=== PATIENT | male | born 1980 | race Caucasian/White ===

== ENCOUNTER 2019-09-03 10:53 | Outpatient (CLI) | payer BC ==
--- NOTE | 2019-09-03 11:41 | BD ---
DEXA BONE DENSITOMETRY: (Dual energy x-ray absorptiometry) DATE: 09/03/2019 HISTORY: 39-year old white male with celiac disease (resulting in malabsorption of calcium and vitamin D) for osteoporosis screening. weight: 240 lbs height: 74 in. COMPARISON: None available. FINDINGS: The bone mineral density (BMD) is given in grams per square centimeter (g/cm2): LUMBAR SPINE: BMD (g/cm^2) T score Z score L1: 0.896 -1.6 -1.6 L2: 1.018 -0.7 -0.7 L3: 1.054 -0.4 -0.4 L4: 1.009 -0.7 -0.7 Total: 0.997 -0.9 -0.7 HIP: BMD (g/cm^2) T score Z score Femoral neck: 0.776 -1.1 -0.7 Total: 0.886 -1.0 -0.8 IMPRESSION: 1.) The mean bone mineral density of the lumbar spine is normal. Fracture risk is not increased. 2) The bone mineral density of the femoral neck is osteopenic. Fracture risk is increased.
== END 2019-09-03 10:54 | disposition home or self-care (01) ==
LOC: BICMAMMO 10:53
PROVIDERS: ATTEND Internal Medicine Gastroenterology
DX: Z13.820 Encounter for screening for osteoporosis (principal); K90.0 Celiac disease; K21.9 Gastro-esophageal reflux disease without esophagitis; R10.30 Lower abdominal pain, unspecified; M85.859 Other specified disorders of bone density and structure, unspecified thigh; Z80.0 Family history of malignant neoplasm of digestive organs
CPT/HCPCS: 77080

== ENCOUNTER 2019-12-04 19:30 | Outpatient (CLI) | payer BC | END 2019-12-04 19:31 | disposition home or self-care (01) | LOC: SLEEPLAB 19:30 | PROVIDERS: ATTEND Urology | DX: G47.33 Obstructive sleep apnea (adult) (pediatric) (principal); R53.83 Other fatigue; E66.9 Obesity, unspecified; K21.9 Gastro-esophageal reflux disease without esophagitis | CPT/HCPCS: 95811 ==

== ENCOUNTER 2021-11-29 15:56 | Outpatient (CLI) | payer BC | END 2021-11-29 15:57 | disposition home or self-care (01) | LOC: SCSRAD 15:56 | PROVIDERS: ATTEND Family Medicine | DX: M25.521 Pain in right elbow (principal) ==